=== PATIENT | male | born 1965 | race Caucasian/White ===

== ENCOUNTER 2019-10-30 10:40 | Inpatient (IN) | payer OTHER ==
[~2019-10-30] VITALS: Ht 175.3 cm; Wt 107.0 kg
[2019-10-30] MEDS ORDERED: METF-961 PO (11:13)
[2019-10-30] MEDS ORDERED: ACYC200C PO (11:21)
[2019-10-30] MEDS ORDERED: INSNPH SQ (11:21)
[2019-10-30] MEDS ORDERED: CLOT15CR71 TP (11:21)
[2019-10-30 13:14] LABS: BASOPHILS % (AUTO) 0.5 % (0.0-2.0); EOSINOPHILS % (AUTO) 0.6 % (1.0-6.0); HEMATOCRIT 48.6 % (41-53); HEMOGLOBIN 16.3 g/dL (13.5-17.5); LYMPHOCYTES # (AUTO) 2.5 K/uL (1.0-4.8); LYMPHOCYTES % (AUTO) 23.5 % (22.0-44.0); MEAN CORPUSCULAR HEMOGLOBIN 29.7 pg (26.0-34.0); MEAN CORPUSCULAR HGB CONC 33.7 G/dL (31.0-37.0); MEAN CORPUSCULAR VOLUME 88 fL (80-100); MONOCYTES # (AUTO) 0.8 K/uL (0.1-1.0); NEUTROPHILS # (AUTO) 7.3 K/uL (1.8-7.7); NEUTROPHILS % (AUTO) 68.4 % (40.0-70.0); PLATELET COUNT (AUTO) 173 K/uL (150-450); RED CELL DISTRIBUTION WIDTH 14.4 % (11.5-14.5)
[2019-10-30 13:27] LABS: ANION GAP 8 mmol/L (8-16); CALCIUM, TOTAL 8.9 mg/dL (8.8-10.5); CARBON DIOXIDE 27 mmol/L (22-29); CHLORIDE 100 mmol/L (98-107); CREATININE 0.91 mg/dL (0.60-1.30); GLOMERULAR FILTR. RATE CALC > 60 mL/min (>60); GLUCOSE,RANDOM 261 mg/dL (70-110); POTASSIUM 4.1 mmol/L (3.5-5.1); SODIUM SERUM 135 mmol/L (136-145); UREA NITROGEN, BLOOD 18 mg/dL (7-18)
[2019-10-30 13:33] LABS: ALANINE AMINOTRANSFERASE 29 U/L (12-78); ALBUMIN 4.1 g/dL (3.4-5.0); ALKALINE PHOSPHATASE 77 U/L (46-116); ASPARTATE AMINOTRANSFERASE 16 U/L (15-37); LIPASE 544 U/L (73-393); TOTAL PROTEIN, SERUM 7.7 g/dL (6.4-8.2)
[2019-10-30] MEDS ORDERED: ONDANSETRON HCL 4 MG/2 ML VIAL IVP PRN (13:45)
[2019-10-30] MEDS ORDERED: 0.9% SODIUM CHLORIDE 10 ML SYRINGE IVP PRN (13:45)
[2019-10-30] MEDS ORDERED: INSULIN REGULAR, HUMAN 100 UNITS/ML IVP ONE (13:45)
[2019-10-30] MEDS ORDERED: NITROGLYCERIN 2% (1 GM=INCH) PACKET TP ONE (13:45)
[2019-10-30] MEDS ORDERED: ASPIRIN 325 MG TABLET PO ONE (13:45)
[2019-10-30] MEDS ORDERED: ACETAMINOPHEN 325 MG TABLET PO PRN (13:45)
[2019-10-30 16:11] VITALS: BP 140/88
[2019-10-30] MEDS ORDERED: DEXTROSE 50%-WATER 25 GM/50 ML SYRINGE IVP PRN (18:00)
[2019-10-30] MEDS: INSULIN LISPRO 100 UNITS/ML SQ PRN ×2 (18:00→21:06)
[2019-10-30 20:39] VITALS: BP 133/78
[2019-10-31 00:30] VITALS: BP 125/77
[2019-10-31 01:00] LABS: GLUCOMETER DEV NAME(LOC) 5S.1; GLUCOSE,POINT OF CARE 244 MG/DL (70-110)
[2019-10-31 01:01] LABS: GLUCOMETER DEV NAME(LOC) 5N.1; GLUCOSE,POINT OF CARE 314 MG/DL (70-110)
[2019-10-31 05:44] VITALS: BP 126/72
[2019-10-31] MEDS: INSULIN LISPRO 100 UNITS/ML SQ PRN ×4 (06:19→20:56)
[2019-10-31 06:32] LABS: GLUCOMETER DEV NAME(LOC) 5N.1; GLUCOSE,POINT OF CARE 282 MG/DL (70-110)
[2019-10-31 07:23] VITALS: BP 128/68
[2019-10-31] MEDS ORDERED: ACETAMINOPHEN 325 MG TABLET PO PRN ×2 (10:15→11:30)
[2019-10-31 10:58] VITALS: BP 145/79
[2019-10-31] MEDS ORDERED: MORPHINE SULFATE 2 MG/ML SYRINGE IVP PRN (11:30)
[2019-10-31] MEDS ORDERED: BISACODYL 10 MG RECTAL RECTAL SUPPOSITORY PR PRN (11:30)
[2019-10-31] MEDS ORDERED: MAGNESIUM HYDROXIDE SUSPENSION 30 ML UDCUP PO PRN (11:30)
[2019-10-31] MEDS ORDERED: ZOLPIDEM TARTRATE 5 MG TABLET PO PRN (11:30)
[2019-10-31] MEDS ORDERED: INSULIN LISPRO 100 UNITS/ML SQ PRN (11:30)
[2019-10-31] MEDS ORDERED: DEXTROSE 50%-WATER 25 GM/50 ML SYRINGE IVP PRN (11:30)
[2019-10-31] MEDS ORDERED: ONDANSETRON HCL 4 MG/2 ML VIAL IVP PRN (11:30)
[2019-10-31 15:11] VITALS: BP 154/80
[2019-10-31] MEDS ORDERED: NITROGLYCERIN 2% (1 GM=INCH) PACKET TP SCH ×2 (16:00→17:45)
[2019-10-31] MEDS ORDERED: INSLAN SQ (16:25)
[2019-10-31] MEDS: HEPARIN SODIUM,PORCINE 5,000 UNITS/ML VIAL SQ SCH (16:57)
[2019-10-31 17:19] LABS: GLUCOMETER DEV NAME(LOC) 5N.1; GLUCOSE,POINT OF CARE 329 MG/DL (70-110)
[2019-10-31 17:19] LABS: GLUCOMETER DEV NAME(LOC) 5N.1; GLUCOSE,POINT OF CARE 321 MG/DL (70-110)
[2019-10-31] MEDS: ATORVASTATIN CALCIUM 10 MG TABLET PO SCH (18:06)
[2019-10-31 19:21] LABS: APPEARANCE,URINE CLEAR (CLEAR); BILIRUBIN,URINE NEGATIVE (NEGATIVE); GLUCOSE, URINE (UA) >=1000 mg/dL (NEGATIVE); KETONES,URINE NEGATIVE (NEGATIVE); LEUKOCYTE ESTERASE ,URINE NEGATIVE (NEGATIVE); NITRATE,URINE NEGATIVE (NEGATIVE); OCCULT BLOOD,URINE NEGATIVE (NEGATIVE); PROTEIN,URINE NEGATIVE (NEGATIVE)
[2019-10-31 19:26] LABS: AMPHET/METH SCREEN,URINE NEGATIVE (NEGATIVE); BARBITURATE SCREEN, URINE NEGATIVE (NEGATIVE); BENZODIAZEPINES SCREEN,URINE NEGATIVE (NEGATIVE); CANNABINOID SCREEN,URINE NEGATIVE (NEGATIVE); COCAINE SCREEN,URINE NEGATIVE (NEGATIVE); METHADONE SCREEN, URINE NEGATIVE (NEGATIVE); OPIATE SCREEN,URINE NEGATIVE (NEGATIVE); PHENCYCLIDINE SCREEN,URINE NEGATIVE (NEGATIVE)
[2019-10-31 19:53] LABS: BACTERIA,URINE None Seen /HPF (None Seen); RBC,URINE None Seen /HPF (0-2); SQUAMOUS EPITHELIAL CELL,UR None Seen /LPF (None Seen); WBC,URINE 0-2 /HPF (0-5)
[2019-10-31 20:34] VITALS: BP 145/86
[2019-10-31] MEDS: DOCUSATE SODIUM 100 MG CAPSULE PO SCH (20:47)
[2019-10-31] MEDS: METOPROLOL SUCCINATE 25 MG ER TABLET PO SCH (20:47)
[2019-10-31] MEDS: ACYCLOVIR 200 MG CAPSULE PO SCH (20:47)
[2019-10-31] MEDS: CLOTRIMAZOLE 1% 15 GM CREAM TP SCH (20:48)
[2019-10-31] MEDS: INSULIN GLARGINE,HUM.REC.ANLOG 100 UNITS/ML SQ SCH (20:55)
[2019-11-01] VITALS (7 sets, daily range): BP systolic 1–154; BP diastolic 63–89
[2019-11-01] MEDS: NITROGLYCERIN 2% (1 GM=INCH) PACKET TP SCH ×3 (00:31→16:29)
[2019-11-01] MEDS: HEPARIN SODIUM,PORCINE 5,000 UNITS/ML VIAL SQ SCH ×3 (00:31→16:31)
[2019-11-01] MEDS: INSULIN LISPRO 100 UNITS/ML SQ PRN ×4 (06:25→20:32)
[2019-11-01 07:19] LABS: BASOPHILS % (AUTO) 0.5 % (0.0-2.0); EOSINOPHILS % (AUTO) 1.5 % (1.0-6.0); HEMATOCRIT 45.4 % (41-53); HEMOGLOBIN 15.5 g/dL (13.5-17.5); LYMPHOCYTES # (AUTO) 2.7 K/uL (1.0-4.8); LYMPHOCYTES % (AUTO) 33.8 % (22.0-44.0); MEAN CORPUSCULAR HGB CONC 34.1 G/dL (31.0-37.0); MEAN CORPUSCULAR VOLUME 88 fL (80-100); MONOCYTES # (AUTO) 0.6 K/uL (0.1-1.0); MONOCYTES % (AUTO) 7.2 % (2.0-9.0); NEUTROPHILS # (AUTO) 4.6 K/uL (1.8-7.7); PLATELET COUNT (AUTO) 167 K/uL (150-450); RED BLOOD CELL COUNT(AUTO) 5.15 MIL/uL (4.50-5.90); RED CELL DISTRIBUTION WIDTH 14.3 % (11.5-14.5)
[2019-11-01 07:38] LABS: ANION GAP 8 mmol/L (8-16); CARBON DIOXIDE 28 mmol/L (22-29); CHLORIDE 97 mmol/L (98-107); CREATININE 1.07 mg/dL (0.60-1.30); GLOMERULAR FILTR. RATE CALC > 60 mL/min (>60); GLUCOSE,RANDOM 299 mg/dL (70-110); LIPASE 77 U/L (73-393); POTASSIUM 4.3 mmol/L (3.5-5.1); SODIUM SERUM 133 mmol/L (136-145); UREA NITROGEN, BLOOD 18 mg/dL (7-18)
[2019-11-01 08:25] LABS: CHOL/HDL RATIO 5.3 (4.2-7.3); CHOLESTEROL 176 mg/dL (131-200); HDL CHOLESTEROL 33 mg/dL (40-60); LDL CHOL (CALC.) 105 mg/dL (0-130); TRIGLYCERIDES 192 mg/dL (15-150)
[2019-11-01] MEDS: PANTOPRAZOLE SODIUM 40 MG DR TABLET PO SCH (09:35)
[2019-11-01] MEDS: ATORVASTATIN CALCIUM 10 MG TABLET PO SCH (09:35)
[2019-11-01] MEDS: ACYCLOVIR 200 MG CAPSULE PO SCH ×2 (09:35→20:25)
[2019-11-01] MEDS: DOCUSATE SODIUM 100 MG CAPSULE PO SCH ×2 (09:35→20:25)
[2019-11-01] MEDS: METOPROLOL SUCCINATE 25 MG ER TABLET PO SCH ×2 (09:35→20:25)
[2019-11-01] MEDS: MetFORMIN HCL 850 MG TABLET PO SCH (09:35)
[2019-11-01] MEDS: ASPIRIN 81 MG CHEWABLE TABLET PO SCH (09:36)
[2019-11-01] MEDS: HYDROCODONE/ACETAMINOPHEN 5-325 MG TABLET PO PRN (09:37)
[2019-11-01] MEDS: CLOTRIMAZOLE 1% 15 GM CREAM TP SCH ×2 (09:37→20:25)
[2019-11-01] MEDS: INSULIN GLARGINE,HUM.REC.ANLOG 100 UNITS/ML SQ SCH ×2 (09:44→20:32)
[2019-11-01 16:49] LABS: GLUCOMETER DEV NAME(LOC) 5N.3; GLUCOSE,POINT OF CARE 295 MG/DL (70-110)
[2019-11-01 17:59] LABS: GLUCOMETER DEV NAME(LOC) 5N.1; GLUCOSE,POINT OF CARE 301 MG/DL (70-110)
[2019-11-01 17:59] LABS: GLUCOMETER DEV NAME(LOC) 5N.1; GLUCOSE,POINT OF CARE 312 MG/DL (70-110)
[2019-11-02] MEDS: HEPARIN SODIUM,PORCINE 5,000 UNITS/ML VIAL SQ SCH ×4 (01:10→23:18)
[2019-11-02] MEDS: NITROGLYCERIN 2% (1 GM=INCH) PACKET TP SCH ×4 (01:10→23:18)
[2019-11-02 04:49] VITALS: BP 148/90
[2019-11-02] MEDS: INSULIN LISPRO 100 UNITS/ML SQ PRN ×4 (06:26→21:14)
[2019-11-02 07:25] LABS: BASOPHILS % (AUTO) 0.5 % (0.0-2.0); EOSINOPHILS % (AUTO) 1.5 % (1.0-6.0); HEMATOCRIT 48.3 % (41-53); HEMOGLOBIN 16.4 g/dL (13.5-17.5); LYMPHOCYTES # (AUTO) 2.7 K/uL (1.0-4.8); LYMPHOCYTES % (AUTO) 30.6 % (22.0-44.0); MEAN CORPUSCULAR HGB CONC 33.9 G/dL (31.0-37.0); MEAN CORPUSCULAR VOLUME 89 fL (80-100); MONOCYTES # (AUTO) 0.7 K/uL (0.1-1.0); MONOCYTES % (AUTO) 7.7 % (2.0-9.0); NEUTROPHILS # (AUTO) 5.3 K/uL (1.8-7.7); NEUTROPHILS % (AUTO) 59.7 % (40.0-70.0); PLATELET COUNT (AUTO) 180 K/uL (150-450); RED BLOOD CELL COUNT(AUTO) 5.46 MIL/uL (4.50-5.90); RED CELL DISTRIBUTION WIDTH 14.2 % (11.5-14.5)
[2019-11-02 07:26] LABS: ANION GAP 7 mmol/L (8-16); CALCIUM, TOTAL 8.9 mg/dL (8.8-10.5); CARBON DIOXIDE 29 mmol/L (22-29); CHLORIDE 99 mmol/L (98-107); CREATININE 0.91 mg/dL (0.60-1.30); GLOMERULAR FILTR. RATE CALC > 60 mL/min (>60); GLUCOSE,RANDOM 307 mg/dL (70-110); POTASSIUM 4.1 mmol/L (3.5-5.1); SODIUM SERUM 135 mmol/L (136-145); UREA NITROGEN, BLOOD 18 mg/dL (7-18)
[2019-11-02] MEDS: MetFORMIN HCL 850 MG TABLET PO SCH (08:07)
[2019-11-02] MEDS: METOPROLOL SUCCINATE 25 MG ER TABLET PO SCH ×2 (08:08→21:11)
[2019-11-02] MEDS: ASPIRIN 81 MG CHEWABLE TABLET PO SCH (08:08)
[2019-11-02] MEDS: ACYCLOVIR 200 MG CAPSULE PO SCH ×2 (08:08→21:11)
[2019-11-02] MEDS: DOCUSATE SODIUM 100 MG CAPSULE PO SCH ×2 (08:08→21:11)
[2019-11-02] MEDS: ATORVASTATIN CALCIUM 10 MG TABLET PO SCH (08:08)
[2019-11-02] MEDS: PANTOPRAZOLE SODIUM 40 MG DR TABLET PO SCH (08:08)
[2019-11-02] MEDS: HYDROCODONE/ACETAMINOPHEN 5-325 MG TABLET PO PRN ×2 (08:09→17:26)
[2019-11-02] MEDS: CLOTRIMAZOLE 1% 15 GM CREAM TP SCH ×2 (08:10→21:15)
[2019-11-02 08:33] VITALS: BP 149/93
[2019-11-02 08:47] LABS: GLUCOMETER DEV NAME(LOC) 5N.3; GLUCOSE,POINT OF CARE 312 MG/DL (70-110)
[2019-11-02 08:47] LABS: GLUCOMETER DEV NAME(LOC) 5N.3; GLUCOSE,POINT OF CARE 326 MG/DL (70-110)
[2019-11-02 11:37] VITALS: BP 157/84
[2019-11-02 12:41] LABS: GLUCOMETER DEV NAME(LOC) 5S.1; GLUCOSE,POINT OF CARE 355 MG/DL (70-110)
[2019-11-02 15:37] VITALS: BP 149/76
[2019-11-02] MEDS ORDERED: ASPI-728 PO (18:44)
[2019-11-02] MEDS ORDERED: METO25XL PO (18:45)
[2019-11-02] MEDS ORDERED: ATOR10TA84 PO (18:45)
[2019-11-02 19:37] VITALS: BP 133/80
[2019-11-02] MEDS: INSULIN GLARGINE,HUM.REC.ANLOG 100 UNITS/ML SQ SCH (21:13)
[2019-11-02 23:14] VITALS: BP 130/77
[2019-11-03 04:39] VITALS: BP 117/78
[2019-11-03 05:11] LABS: GLUCOMETER DEV NAME(LOC) 5N.3; GLUCOSE,POINT OF CARE 318 MG/DL (70-110)
[2019-11-03 05:11] LABS: GLUCOMETER DEV NAME(LOC) 5N.3; GLUCOSE,POINT OF CARE 269 MG/DL (70-110)
[2019-11-03 05:11] LABS: GLUCOMETER DEV NAME(LOC) 5N.1; GLUCOSE,POINT OF CARE 207 MG/DL (70-110)
[2019-11-03] MEDS: INSULIN LISPRO 100 UNITS/ML SQ PRN ×2 (06:18→14:24)
[2019-11-03 07:35] VITALS: BP 143/73
[2019-11-03] MEDS ORDERED: LOSARTAN POTASSIUM 25 MG TABLET PO SCH (09:00)
[2019-11-03] MEDS: HEPARIN SODIUM,PORCINE 5,000 UNITS/ML VIAL SQ SCH (09:56)
[2019-11-03] MEDS: NITROGLYCERIN 2% (1 GM=INCH) PACKET TP SCH (09:56)
[2019-11-03] MEDS: DOCUSATE SODIUM 100 MG CAPSULE PO SCH (09:56)
[2019-11-03] MEDS: ASPIRIN 81 MG CHEWABLE TABLET PO SCH (09:56)
[2019-11-03] MEDS: ATORVASTATIN CALCIUM 10 MG TABLET PO SCH (09:57)
[2019-11-03] MEDS: PANTOPRAZOLE SODIUM 40 MG DR TABLET PO SCH (09:57)
[2019-11-03] MEDS: ACYCLOVIR 200 MG CAPSULE PO SCH (09:58)
[2019-11-03] MEDS: METOPROLOL SUCCINATE 25 MG ER TABLET PO SCH (09:58)
[2019-11-03] MEDS: CLOTRIMAZOLE 1% 15 GM CREAM TP SCH (09:58)
[2019-11-03] MEDS: INSULIN GLARGINE,HUM.REC.ANLOG 100 UNITS/ML SQ SCH (10:01)
[2019-11-03] MEDS: MetFORMIN HCL 850 MG TABLET PO SCH (10:04)
[2019-11-03 11:20] VITALS: BP 135/71
[2019-11-03 12:05] LABS: GLUCOMETER DEV NAME(LOC) 5N.1; GLUCOSE,POINT OF CARE 252 MG/DL (70-110)
[2019-11-03 12:05] LABS: GLUCOMETER DEV NAME(LOC) 5N.1; GLUCOSE,POINT OF CARE 353 MG/DL (70-110)
[2019-11-03] MEDS ORDERED: LOSA25TA71 PO (13:39)
== END 2019-11-03 15:12 | DRG 313 ==
LOC: EMS 10:42 → 5S 15:12
PROVIDERS: ADMIT Internal Medicine; ATTEND Internal Medicine
DX: R07.89 Other chest pain (principal); E78.5 Hyperlipidemia, unspecified; I10 Essential (primary) hypertension; E11.9 Type 2 diabetes mellitus without complications; Z79.84 Long term (current) use of oral hypoglycemic drugs; Z79.4 Long term (current) use of insulin; Z79.899 Other long term (current) drug therapy
CPT/HCPCS: 80307; 93005; 93306; J1644; J1815; J2270